=== PATIENT | male | born 1960 | race Caucasian/White ===

== ENCOUNTER 2018-04-23 07:46 | Day surgery (SDC) | payer OTHER ==
[2014-04-26 10:22] VITALS: BP 108/70
[2018-04-23] MEDS ORDERED: LIDOCAINE HCL/PF 2% 100 MG/5 ML VIAL IJ ONE (09:00)
[2018-04-23] MEDS ORDERED: SALINE FLUSH 10 ML DISP.SYRIN IVF ONE (09:00)
[2018-04-23] MEDS ORDERED: LACTATED RINGERS 1,000 ML IV.SOLN IV ONE (09:00)
[2018-04-23] MEDS ORDERED: PROPOFOL 200 MG/20 ML VIAL IV ONE (09:00)
--- NOTE | 2018-04-29 08:22 | GI Report ---
REFERRING PHYSICIAN: DAVID Espinoza [employer] STRA[employer]ENER: Wily Hall MD PROCEDURE MEDICATION: Propofol as per anesthesia. INDICATIONS: This is a 57-year-old man referred for a screening colonoscopy. He denies change in bowel habits or blood in the stool. He does have asthma, though stable under treatment. PROCEDURE PERFORMED: Colonoscopy. PROCEDURE: An Olympus video colonoscope was advanced to the rectum. In the sigmoid at 20 cm, patient has a 3 mm to 4 mm flat polyp removed with a cold snare. He does have mild diverticular disease of the sigmoid and descending colon. There were small diverticula. The colonoscope was advanced all the way to the cecum. The appendiceal orifice and terminal ileum were normal. On slow withdrawal, the cecum, ascending colon, and transverse colon with no obvious intraluminal lesions noted. The descending colon and sigmoid with scattered diverticula and the polyp at 20 cm. Retroflexion of the rectum was normal. FINDINGS: 1. Sigmoid polyp removed. 2. Mild diverticular disease of the colon. RECOMMENDATIONS: 1. A high-fiber diet. 2. Consider re-looking at his colon in 5 years pending the pathology of the polyp. cc: DAVID Espinoza [facility] HOSPITALAyaka
== END 2018-04-23 07:48 ==
LOC: OPSURG 07:46
PROVIDERS: ATTEND Internal Medicine Gastroenterology
DX: Z12.11 Encounter for screening for malignant neoplasm of colon (principal); D12.5 Benign neoplasm of sigmoid colon; K57.30 Diverticulosis of large intestine without perforation or abscess without bleeding
CPT/HCPCS: 45380; J2001; J2704; J7120; S1016